=== PATIENT | female | born 1945 | race Caucasian/White ===

== ENCOUNTER → 2016-12-20 | Outpatient (CLI) | payer MEDICARE, OTHER ==
[~2016-12-20] MED LIST: ANUSOL-HC25 MG PR; ASA325 MG PO; DULCOLAX-DPS10 MG PR; ENEMA READY TO133 ML PR; MAALOX DPS30 ML PO; MILK OF MAGNESI10 ML PO; PERCOCET 7.5 DP1 TAB PO; PRILOSEC DPS20 MG PO; PROTONIX40 MG PO; SENOKOT S1 TAB PO; TED HOSE; TYLENOL DPS325 MG PO; XANAX DPS0.25 MG PO; ZANAFLEX4 MG PO; ZOFRAN4 MG PO
== END | disposition home or self-care (01) ==
LOC: RAD.S 12-06 12:40
DX: Z12.31 Encounter for screening mammogram for malignant neoplasm of breast (principal); R92.1 Mammographic calcification found on diagnostic imaging of breast

== ENCOUNTER 2017-01-29 13:50 | Emergency (ER) | payer MEDICARE, OTHER ==
--- NOTE | 2017-01-30 10:41 | ER ---
ADMIT: 01/29/2017 RM/LOC: ER [facility] MR#: [id number] [id number] [id number] JACLYN LLOYD [address] [place] [address] Emergency Room Report SEX: F AGE: 71 : 1945 DATE: 01/29/2017 ADDENDUM: This 71-year-old white female coming with back pain. She has had this chronically. She had least 8 operations over the years on it. Chronic narcotic dependent, but it is not holding her today. I gave her 60 of Toradol IM, Dilaudid 2 mg IM, as this is what she got probably last year about this time, that seemed to help her. She is discharged home. She needs to follow up with Dr. Delgado if she is not improving. CONDITION ON DISCHARGE: Improved. Dwain Arnett MD/ suha JOB #: [id number] CC: Dwain Arnett MD, Attending Physician
[2017-02-08] MEDS ORDERED: ASA325 MG PO (13:23)
[2017-02-08] MEDS ORDERED: XANAX DPS0.25 MG PO (13:24)
[2017-02-08] MEDS ORDERED: SENOKOT S1 TAB PO (13:24)
[2017-02-08] MEDS ORDERED: PROTONIX40 MG PO (13:24)
[2017-02-08] MEDS ORDERED: ZANAFLEX4 MG PO (13:24)
[2017-02-08] MEDS ORDERED: MILK OF MAGNESI10 ML PO (13:25)
[2017-02-08] MEDS ORDERED: TYLENOL DPS325 MG PO (13:25)
[2017-02-08] MEDS ORDERED: PERCOCET 7.5 DP1 TAB PO (13:25)
[2017-02-08] MEDS ORDERED: MAALOX DPS30 ML PO (13:25)
[2017-02-08] MEDS ORDERED: DULCOLAX-DPS10 MG PR (13:26)
[2017-02-08] MEDS ORDERED: ZOFRAN4 MG PO (13:26)
[2017-02-08] MEDS ORDERED: ANUSOL-HC25 MG PR (13:26)
[2017-02-08] MEDS ORDERED: PRILOSEC DPS20 MG PO (13:27)
[2017-02-08] MEDS ORDERED: ENEMA READY TO133 ML PR (13:27)
[2017-02-08] MEDS ORDERED: TED HOSE (13:28)
== END 2017-01-29 15:25 | disposition home or self-care (01) ==
LOC: ER 13:50
DX: G89.29 Other chronic pain (principal); M54.5 Low back pain; Z88.6 Allergy status to analgesic agent; Z79.899 Other long term (current) drug therapy

== ENCOUNTER 2017-02-03 14:55 | Inpatient (IN) | payer MEDICARE, OTHER ==
[2017-02-08] MEDS ORDERED: ASA325 MG PO (13:23)
[2017-02-08] MEDS ORDERED: SENOKOT S1 TAB PO (13:24)
[2017-02-08] MEDS ORDERED: XANAX DPS0.25 MG PO (13:24)
[2017-02-08] MEDS ORDERED: PROTONIX40 MG PO (13:24)
[2017-02-08] MEDS ORDERED: ZANAFLEX4 MG PO (13:24)
[2017-02-08] MEDS ORDERED: TYLENOL DPS325 MG PO (13:25)
[2017-02-08] MEDS ORDERED: PERCOCET 7.5 DP1 TAB PO (13:25)
[2017-02-08] MEDS ORDERED: MAALOX DPS30 ML PO (13:25)
[2017-02-08] MEDS ORDERED: MILK OF MAGNESI10 ML PO (13:25)
[2017-02-08] MEDS ORDERED: ANUSOL-HC25 MG PR (13:26)
[2017-02-08] MEDS ORDERED: ZOFRAN4 MG PO (13:26)
[2017-02-08] MEDS ORDERED: DULCOLAX-DPS10 MG PR (13:26)
[2017-02-08] MEDS ORDERED: PRILOSEC DPS20 MG PO (13:27)
[2017-02-08] MEDS ORDERED: ENEMA READY TO133 ML PR (13:27)
[2017-02-08] MEDS ORDERED: TED HOSE (13:28)
== END 2017-02-07 14:45 | DRG 481 ==
DX: S72.002A Fracture of unspecified part of neck of left femur, initial encounter for closed fracture (principal); D62 Acute posthemorrhagic anemia; X58.XXXA Exposure to other specified factors, initial encounter; E78.5 Hyperlipidemia, unspecified; F41.9 Anxiety disorder, unspecified; G89.4 Chronic pain syndrome; M81.0 Age-related osteoporosis without current pathological fracture; M54.9 Dorsalgia, unspecified; Z87.442 Personal history of urinary calculi; Z98.1 Arthrodesis status; Z96.612 Presence of left artificial shoulder joint; Z96.611 Presence of right artificial shoulder joint; Z96.653 Presence of artificial knee joint, bilateral

== ENCOUNTER → 2017-03-17 | Outpatient (CLI) | payer OTHER, MEDICARE | END | disposition home or self-care (01) | LOC: RAD.S 03-07 14:30 | DX: Z13.820 Encounter for screening for osteoporosis (principal); M81.0 Age-related osteoporosis without current pathological fracture ==